=== PATIENT | male | born 1970 | race Caucasian/White ===

== ENCOUNTER 2022-11-13 17:37 | Inpatient (IN) | payer BC, OTHER ==
[2022-11-13 18:11] LABS: Absolute Lymphocytes (CBC) 1.8 K/uL (0.7-4.9); Hematocrit 40.2 % (39.6-49.0); MCV 82.9 fL (80-100); MPV 7.7 fL (7.6-11.3); RBC Red Blood Cell Count 4.85 M/uL (4.33-5.43)
[2022-11-13 18:24] LABS: Bilirubin Total 2.4 mg/dL (0.2-1.0); Potassium 4.2 mEq/L (3.5-5.1); Protein, Total 7.8 g/dL (6.4-8.2)
[2022-11-13 18:40] LABS: Specific Gravity 1.018 (1.005-1.030); Urine Bacteria None Seen /HPF (<20); Urine Bilirubin NEGATIVE (Negative); Urine Blood Negative (Negative); Urine Clarity Clear (Clear); Urine Color Yellow (Yellow); Urine Crystals Unidentified Few /HPF (None Seen); Urine Glucose NEGATIVE (Negative); Urine Mucus Slight /HPF (None Seen); Urine Protein TRACE (Negative); Urine RBC <5 /HPF (None Seen); Urine Urobilinogen Normal (Normal); Urine pH 5.5 (5.0-7.0)
--- NOTE | 2022-11-13 19:00 | RAD REPORT ---
EXAM DESCRIPTION: CT - Abdomen Pelvis W Contrast - 11/13/2022 6:39 pm CLINICAL HISTORY: Abdominal pain/lower abdominal pain COMPARISON: none. TECHNIQUE: Computed axial tomography of the abdomen pelvis was obtained. 100 cc Isovue-300 was admin istered intravenously. Oral contrast was not requested which limits evaluation of bowel and appendix All CT scans are performed using dose optimization technique as appropriate and may include automated exposure control or mA/KV adjustment according to patient size. FINDINGS: Mild fatty liver Spleen, pancreas, adrenal and kidneys appear unremarkable. Normal appendix. Diverticula stem from predominantly descending colon. 2.3 centimeter fluid collection lies posterior to a diverticulum. There is moderate stranding within the adjacent fat. No free air. This is compatib le with diverticulitis. The wall of the descending colon is thickened at this level Small left inguinal hernia contains fat Small umbilical hernia IMPRESSION: Moderate descending colon diverticulitis. A 2.3 centimeter fluid collection lies posterior to a descending colon diverticulum. There is no enha ncing rim to suggest an abscess. Of this could be monitored on subsequent examination.
--- NOTE | 2022-11-13 20:04 | RAD REPORT ---
EXAM DESCRIPTION: US - Abdomen Exam Limited - 11/13/2022 7:53 pm CLINICAL HISTORY: Abdominal pain. COMPARISON: None. FINDINGS: The gallbladder wall is not thickened. A gallstone is not seen. The biliary tree is normal caliber. IMPRESSION: Unremarkable gallbladder ultrasound.
[2022-11-13] MEDS ORDERED: NA CHLORIDE 0.9% 100 ML ONE (20:05)
[2022-11-13] MEDS ORDERED: PIPERACIL/TAZO 3.375 GM VIAL IV ONE (20:05)
--- NOTE | 2022-11-13 20:17 | EDPHYS ---
Physician Documentation [facility] Name: Huey Meyers Age: 52 yrs Sex: Male : 1970 Arrival Date: 11/13/2022 Time: 17:37 Bed 13 Private MD: ED Physician Roque Henderson HPI: 11/13 20:49 This 52 yrs old Male presents to ER via Ambulatory with complaints of Abdominal Pain. jmm 20:49 The patient presents with abdominal pain. Onset: The symptoms/episode began/occurred jm gradually, 1 week(s) ago. The symptoms do not radiate. Associated signs and symptoms: Pertinent positives: nausea. Is a 52-year-old male with history of hypertension and previous episodes of diverticulitis the presents emerged part with complaints of left lower abdominal pain beginning approximately a week ago. Patient began a course of antibiotics that he is unable to name 2 days ago. Patient states that symptoms have worsened today. Historical: - Allergies: 17:44 horse tetanus; ld1 - Immunization history:: Adult Immunizations up to date, Client reports receiving the 2nd dose of the Covid vaccine. - Social history:: Smoking status: Patient denies any tobacco usage or history of. Patient uses alcohol, occasionally. ROS: 20:49 Constitutional: Negative for fever, chills, and weight loss, Cardiovascular: Negative jm for chest pain, palpitations, and edema, Respiratory: Negative for shortness of breath, cough, wheezing, and pleuritic chest pain. 20:49 Abdomen/GI: Positive for abdominal pain. 20:49 All other systems are negative. Exam: 20:49 Constitutional: This is a well developed, well nourished patient who is awake, alert, jmm and in no acute distress. Head/Face: atraumatic. Eyes: EOMI, no conjunctival erythema appreciated ENT: Moist Mucus Membranes Neck: Trachea midline, Supple Chest/axilla: Normal chest wall appearance and motion. Cardiovascular: Regular rate and rhythm. No edema appreciated Respiratory: Normal respirations, no respiratory distress appreciated 20:49 Back: Normal ROM Skin: General appearance color normal MS/ Extremity: Moves all extremities, no obvious deformities appreciated, no edema noted to the lower extremities Neuro: Awake and alert Psych: Behavior is normal, Mood is normal, Patient is cooperative and pleasant 20:49 Abdomen/GI: Inspection: abdomen appears normal, Bowel sounds: normal, Palpation: soft, mild abdominal tenderness, in the left lower quadrant. Vital Signs: 17:45 BP 149 / 100; Pulse 104; Resp 18; Temp 99(O); Pulse Ox 98% on R/A; Weight 95.25 kg; ld1 Height 5 ft. 9 in. ; Pain 7/10; 18:15 BP 117 / 77; Pulse 96; Resp 18; Pulse Ox 94% on R/A; vc1 19:15 BP 128 / 78; Pulse 86; Resp 18; Pulse Ox 94% on R/A; vc1 20:15 BP 129 / 82; Pulse 93; Resp 18; Pulse Ox 94% on R/A; vc1 21:15 BP 133 / 87; Pulse 89; Resp 18; Pulse Ox 96% on R/A; vc1 17:45 Body Mass Index 31.01 (95.25 kg, 175.26 cm) ld1 17:45 Pain Scale: Adult ld1 MDM: 17:50 Patient medically screened. [facility] 20:18 ED course: Sepsis. A) Source of infection is diverticulitis B) elevated heart rate and [facility] elevated white blood cell count C) bilirubin is 2.4. This meets criteria for severe sepsis.. 20:51 Differential diagnosis: diverticulitis, Hepatitis, Peritonitis. Data reviewed: vital [facility] signs, nurses notes, lab test result(s), radiologic studies, CT scan. Consideration of Admission/Observation Patient was admitted/placed on observation. Management of patient was discussed with the following: Hospitalist: Ian Stevens. I considered the following discharge prescriptions or medication management in the emergency department Medications were administered in the Emergency Department. See MAR. Discussion of test interpretation with radiology: I had a discussion with radiology regarding a test interpretation. Diverticulitis findings discussed with radiology. Fluid collection is consistent with acute diverticulitis. Currently does not have concerns for an abscess. Counseling: I had a detailed discussion with the patient and/or guardian regarding: the historical points, exam findings, and any diagnostic results supporting the discharge/admit diagnosis, lab results, radiology results, the need for further work-up and treatment in the hospital. 11/13 17:44 Order name: CBC with Diff; Complete Time: 18:31 ld1 11/13 17:44 Order name: CMP; Complete Time: 18:25 ld1 11/13 17:44 Order name: Lipase; Complete Time: 18:25 [facility] 11/13 17:44 Order name: Urinalysis w/ reflexes; Complete Time: 18:57 [facility] 11/13 20:12 Order name: Blood Culture Adult (2) [facility] 11/13 20:12 Order name: Lactate w/ 2H reflex if indic. [facility] 11/13 20:17 Order name: PT-INR [facility] 11/13 17:51 Order name: CT Abd/Pelvis - IV Contrast Only; Complete Time: 19:02 [facility] 11/13 19:04 Order name: US Abdomen Limited; Complete Time: 20:11 [facility] 11/13 17:44 Order name: IV Saline Lock; Complete Time: 18:05 ld 11/13 17:44 Order name: Labs collected and sent; Complete Time: 18:05 ld1 Administered Medications: 19:20 Drug: Lactated Ringers Solution IV 1000 ml Route: IV; Rate: 1000 bolus; Site: right [facility] antecubital; 21:00 Follow up: IV Status: Completed infusion; IV Intake: 1000ml vc1 19:20 Drug: morphine IVP or IV 4 mg Route: IVP; Infused Over: 4 mins; Site: right antecubital;3 20:00 Follow up: Response: Pain is decreased vc1 19:20 Drug: Ondansetron IVP 4 mg Route: IVP; Site: right antecubital; 3 20:00 Follow up: Response: No adverse reaction vc1 21:00 Drug: Piperacillin-Tazobactam IVPB 3.375 grams Route: IVPB; Infused Over: 60 mins; vc1 Site: right antecubital; 22:09 Follow up: Response: No adverse reaction; IV Status: Infusion continued upon admission; [facility] IV Intake: 50ml Disposition: 11/14 13:24 Co-signature as Attending Physician, Roque ANDREW was immediately available on-site ms3 in the Emergency Department for consultation in the care of the patient. Disposition Summary: 11/13/22 20:16 Hospitalization Ordered Hospitalization Status: Inpatient Admission [facility] Provider: Jose M Giraldo [facility] Condition: Stable [facility] Problem: new jmm Symptoms: are unchanged [facility] Bed/Room Type: Standard [facility] Room Assignment: 415(11/13/22 20:44) Diagnosis - Acute Diverticulitis [facility] - Severe sepsis without septic shock [facility] Forms: - Medication Reconciliation Form [facility] - SBAR form [facility] Signatures: Dispatcher [employer] Nba Juarez PA PA jmm Garcia, Cindy, RN RN cg Roque Henderson, DO ms3 Alieen Henderson RN RN ld1 Liliana Quiros RN RN vc1 Birgit Coleman RN RN eh3 Corrections: (The following items were deleted from the chart) 11/13 20:44 20:16 [facility]
--- NOTE | 2022-11-13 20:17 | ER ---
Nurse's Notes [facility] Name: Huey Meyers Age: 52 yrs Sex: Male : 1970 Arrival Date: 11/13/2022 Time: 17:37 Bed 13 Private MD: Diagnosis: Acute Diverticulitis;Severe sepsis without septic shock Presentation: 11/13 17:45 Chief complaint: Patient states: I began having a diverticulitis flare up - I ld1 [facility] Symptoms have become worse. C/O abd pain, fever. Coronavirus screen: At this time, the client does not indicate any symptoms associated with coronavirus-19. Ebola Screen: No symptoms or risks identified at this time. Initial Sepsis Screen: Does the patient meet any 2 criteria? No. Patient's initial sepsis screen is negative. Does the patient have a suspected source of infection? No. Patient's initial sepsis screen is negative. Risk Assessment: Do you want to hurt yourself or someone else? Patient reports no desire to harm self or others. Onset of symptoms was November 13, 2022. 17:45 Method Of Arrival: Ambulatory ld1 17:45 Acuity: CAMILA 3 ld1 Triage Assessment: 17:45 General: Appears in no apparent distress. comfortable, Behavior is calm, cooperative, ld1 appropriate for age. Pain: Complains of pain in abdomen Pain does not radiate. Pain currently is 9 out of 10 on a pain scale. Quality of pain is described as throbbing, Pain began 1 day ago. EENT: No signs and/or symptoms were reported regarding the EENT system. Neuro: Level of Consciousness is awake, alert, obeys commands, Oriented to person, place, time, situation. Cardiovascular: Capillary refill < 3 seconds Patient's skin is warm and dry. Respiratory: Airway is patent Respiratory effort is even, unlabored. GI: Abdomen is round non-distended. GI: Reports lower abdominal pain, upper abdominal pain. : No signs and/or symptoms were reported regarding the genitourinary system. Derm: No signs and/or symptoms reported regarding the dermatologic system. Musculoskeletal: No signs and/or symptoms reported regarding the musculoskeletal system. Historical: - Allergies: 17:44 horse tetanus; ld1 - Immunization history:: Adult Immunizations up to date, Client reports receiving the 2nd dose of the Covid vaccine. - Social history:: Smoking status: Patient denies any tobacco usage or history of. Patient uses alcohol, occasionally. Screenin:15 [facility] ED Fall Risk Assessment (Adult) Score/Fall Risk Level 0 - 2 = Low Risk. Abuse vc1 screen: Denies threats or abuse. Denies injuries from another. Nutritional screening: No deficits noted. Tuberculosis screening: No symptoms or risk factors identified. Assessment: 18:15 General: Appears in no apparent distress. uncomfortable, Behavior is calm, cooperative, vc1 appropriate for age. Pain: Complains of pain in left lower quadrant. Neuro: Level of Consciousness is awake, alert, obeys commands, Oriented to person, place, time, situation. Cardiovascular: Capillary refill < 3 seconds Patient's skin is warm and dry. Respiratory: Airway is patent Respiratory effort is even, unlabored, Respiratory pattern is regular, symmetrical. GI: Abdomen is round non-distended, Bowel sounds present X 4 quads. Abd is soft X 4 quads Abdomen is tender to palpation in left lower quadrant. : No signs and/or symptoms were reported regarding the genitourinary system. EENT: No signs and/or symptoms were reported regarding the EENT system. Derm: Skin is intact, is healthy with good turgor, Skin is pink, warm \T\ dry. Musculoskeletal: Circulation, motion, and sensation intact. 19:15 Reassessment: Patient appears in no apparent distress at this time. Patient and/or vc1 family updated on plan of care and expected duration. Pain level reassessed. Patient is alert, oriented x 3, equal unlabored respirations, skin warm/dry/pink. 20:15 Reassessment: Patient appears in no apparent distress at this time. Patient and/or vc1 family updated on plan of care and expected duration. Pain level reassessed. Patient is alert, oriented x 3, equal unlabored respirations, skin warm/dry/pink. 21:15 Reassessment: Patient appears in no apparent distress at this time. Patient and/or vc1 family updated on plan of care and expected duration. Pain level reassessed. Patient is alert, oriented x 3, equal unlabored respirations, skin warm/dry/pink. Vital Signs: 17:45 BP 149 / 100; Pulse 104; Resp 18; Temp 99(O); Pulse Ox 98% on R/A; Weight 95.25 kg; ld1 Height 5 ft. 9 in. ; Pain 7/10; 18:15 BP 117 / 77; Pulse 96; Resp 18; Pulse Ox 94% on R/A; vc1 19:15 BP 128 / 78; Pulse 86; Resp 18; Pulse Ox 94% on R/A; vc1 20:15 BP 129 / 82; Pulse 93; Resp 18; Pulse Ox 94% on R/A; vc1 21:15 BP 133 / 87; Pulse 89; Resp 18; Pulse Ox 96% on R/A; vc1 17:45 Body Mass Index 31.01 (95.25 kg, 175.26 cm) ld1 17:45 Pain Scale: Adult ld1 ED Course: 17:39 Patient arrived in ED. ts1 17:44 Nba Falcon PA is PHCP. jmm 17:44 Roque Henderson DO is Attending Physician. jmm 17:45 Arm band placed on right wrist. ld1 17:47 Triage completed. ld1 18:06 Inserted saline lock: 20 gauge in right antecubital area, using aseptic technique. ld1 Blood collected. 18:11 Radiology exam delayed due to lab results not completed at this time. (BUN/Creatinine) jg10 IV insertion attempt and/or patient not having appropriate IV at this time. 18:12 Urinalysis w/ reflexes Sent. ld1 18:12 Lipase Sent. ld1 18:12 CMP Sent. ld1 18:12 CBC with Diff Sent. ld1 18:15 Patient has correct armband on for positive identification. Bed in low position. Call vc1 light in reach. Side rails up X2. Adult w/ patient. Pulse ox on. NIBP on. Door closed. Visitors limited. Lights dimmed. Warm blanket given. 18:16 Birgit Coleman, RN is Primary Nurse. eh3 18:41 CT Abd/Pelvis - IV Contrast Only In Process Unspecified. EDMS 19:55 US Abdomen Limited In Process Unspecified. EDMS 20:16 Jose M Giraldo MD is Hospitalizing Provider. jmm 21:20 First set of blood cultures drawn by mo. vc1 21:48 No provider procedures requiring assistance completed. Patient admitted, IV remains in vc1 place. Administered Medications: 19:20 Drug: Lactated Ringers Solution IV 1000 ml Route: IV; Rate: 1000 bolus; Site: right 3 antecubital; 21:00 Follow up: IV Status: Completed infusion; IV Intake: 1000ml [facility] 19:20 Drug: morphine IVP or IV 4 mg Route: IVP; Infused Over: 4 mins; Site: right antecubital;[facility] 20:00 Follow up: Response: Pain is decreased vc1 19:20 Drug: Ondansetron IVP 4 mg Route: IVP; Site: right antecubital; [facility] 20:00 Follow up: Response: No adverse reaction 1 21:00 Drug: Piperacillin-Tazobactam IVPB 3.375 grams Route: IVPB; Infused Over: 60 mins; 1 Site: right antecubital; 22:09 Follow up: Response: No adverse reaction; IV Status: Infusion continued upon admission; [facility] IV Intake: 50ml Medication: 21:48 VIS not applicable for this client. vc1 Intake: 21:00 IV: 1000ml; Total: 1000ml. [facility] 22:09 IV: 50ml; Total: 1050ml. [facility] Outcome: 20:16 Decision to Hospitalize by Provider. m 21:48 Admitted to Tele accompanied by tech, via wheelchair, room 415, Report called to Lan [facility] 21:48 Condition: stable 21:48 Instructed on the need for admit. 21:48 Patient left the ED. [facility] Signatures: Dispatcher [employer] EDMS Nba Falcon PA PA jmm Sims, Lauren, RN RN ld1 Liliana Quiros RN RN vc1 Birgit Coleman RN RN [facility] Maura TalaveraDyan Christian PAS PAS [facility]
--- NOTE | 2022-11-13 20:53 | P.HP ---
Certification for Inpatient Patient admitted to: Inpatient With expected LOS: >2 Midnights Patient will require the following post-hospital care: None Practitioner: I am a practitioner with admitting privileges, knowledge of patient current condition, hospital course, and medical plan of care. Services: Services provided to patient in accordance with Admission requirements found in Title 42 Section 412.3 of the Code of Federal Regulations Patient History Date of Service: 11/13/22 Reason for admission: Acute diverticulitis History of Present Illness: 52-year-old male with history of hypertension, diverticulosis presents to the emergency department with chief complaint of fever, left lower quadrant abdominal pain. He reports that his pain began on 11/11/2022, worsening pain and fevers on 11/12/2022. He has been on Augmentin since then. Pain and fevers persisted for this reason he presented to the emergency department today. His labs were significant for leukocytosis white blood cell count 13.1 T. bili 2.4 sodium 133 lactic acid, blood cultures pending CT abdomen pelvis with IV contrast showed moderate descending colon diverticulitis. A 2.3 cm fluid collection lies posterior to the descending colon diverticulum. There is no enhancing rim to suggest an abscess. This could be monitored on subsequent examination. Ultrasound of the gallbladder was also performed which was negative for any acute findings. Discussed case with general surgery given fluid collection, will admit n.p.o. on IV antibiotics. Allergies Tetanus Vaccines and Toxoid Allergy (Intermediate, Verified 10/03/17 14:34) Itching/Hives/Rash horse tetan Allergy (Severe, Uncoded 10/03/17 21:14) Anaphylaxis Home Medications: Aspirin [Aspirin EC 81 MG] 81 mg PO DAILY #90 tablet. 10/04/17 lisinopriL [Prinivil*] 10 mg PO DAILY #30 tab 10/04/17 - Past Medical/Surgical History Diabetic: No -: bible cyst -: Diverticulitis -: Cyst removed from wrist -: Tendons surgery to the foot Psychosocial/ Personal History: The patient is . He does work. He has 3 children. - Family History Father -: Stroke Mother -: Hypertension - Social History Smoking Status: Never smoker Alcohol use: No CD- Drugs: No Caffeine use: Yes Place of Residence: Home Review of Systems 10-point ROS is otherwise unremarkable Gastrointestinal: Abdominal Pain Physical Examination - Physical Exam General: Alert, In no apparent distress, Oriented x3 HEENT: Atraumatic, PERRLA, Mucous membr. moist/pink, EOMI, Sclerae nonicteric Neck: Supple, 2+ carotid pulse no bruit, No LAD, Without JVD or thyroid abnormality Respiratory: Clear to auscultation bilaterally, Normal air movement Cardiovascular: Regular rate/rhythm, Normal S1 S2 Capillary refill: <2 Seconds Gastrointestinal: No tenderness, Tenderness (Moderate left lower quadrant tenderness) Musculoskeletal: No tenderness Integumentary: No rashes Neurological: Normal speech, Normal strength at 5/5 x4 extr, Normal tone, Normal affect - Studies Laboratory Data (last 24 hrs) 11/13/22 17:58: Sodium 133 L, Potassium 4.2, BUN 16, Creatinine 1.12, Glucose 94, Total Bilirubin 2.4 H, AST 19, ALT 39, Alkaline Phosphatase 105, Lipase 19 11/13/22 17:58: WBC 13.10 H, Hgb 13.4 L, Hct 40.2, Plt Count 194 Assessment and Plan - Plan Assessment: Severe sepsis secondary to acute diverticulitis Elevated T. bili HTN Plan: Severe sepsis secondary to acute diverticulitis SIRS criteria present including leukocytosis, tachycardia, source of infection with acute diverticulitis. T. bili greater than 2 meets criteria for severe sepsis. Lactate pending, blood cultures were obtained. Continue antibioticsZosyn. N.p.o., surgical consult in place. Recommend outpatient colonoscopy for 6 weeks after treatment complete. Serial abdominal exams. Currently with moderate left lower quadrant tenderness. Elevated T. bili Possibly secondary to sepsis vs Gilbert's syndrome among other considerations. Ultrasound of the gallbladder negative for gallbladder or biliary pathology. Patient has had 1 previous elevated T. bili at 1.5 and number of years ago. He denies chronic alcohol abuse, LFTs normal. HTN Hold oral antihypertensives in the setting of sepsis, continue when appropriate. DVT PPX:Lovenox Code status:Full Discharge Plan: Home Plan to discharge in: 72 Hours - Advance Directives Does patient have a Living Will: No Does patient have a Durable POA for Healthcare: No - Code Status/Comfort Care Code Status Assessed: Yes (Full code) Critical Care: No Time Spent Managing Pts Care (In Minutes): 55
[2022-11-13] MEDS ORDERED: ACETAMINOPHEN 500 MG TAB PO PRN (21:51)
[2022-11-13] MEDS ORDERED: ONDANSETRON 4 MG/2 ML VIAL IV PRN (21:51)
[2022-11-13 21:58] LABS: Protime INR 1.24
[2022-11-13 22:06] VITALS: O2SAT 96
[2022-11-13] MEDS: Ringers Lactate 1,000 ML IV SCH (22:16)
[2022-11-13 23:30] VITALS: BMI 30.3
[2022-11-14] MEDS: PIPER TAZO 3.375 GM in NA CHLORIDE 0.9% 100 ML IV SCH ×3 (00:33→16:34)
[2022-11-14] MEDS: MORPHINE 4 MG/ML SYR IV PRN ×2 (03:19→07:05)
[2022-11-14 04:59] LABS: Absolute Lymphocytes (CBC) 1.2 K/uL (0.7-4.9); Hematocrit 36.2 % (39.6-49.0); Lymphocytes % 12.9 % (15.3-44.8); RBC Red Blood Cell Count 4.37 M/uL (4.33-5.43)
[2022-11-14 05:13] LABS: Albumin 3.2 g/dL (3.4-5.0); Magnesium 2.2 mg/dL (1.6-2.4); Protein, Total 6.5 g/dL (6.4-8.2)
[2022-11-14] MEDS: Ringers Lactate 1,000 ML IV SCH ×3 (05:48→20:35)
[2022-11-14] MEDS: ENOXAPARIN 40 MG/0.4 ML SQ SCH (08:56)
--- NOTE | 2022-11-14 13:52 | CON ---
Date of Consultation: 11/13/2022 Reason For Consultation: Abdominal pain. History Of Present Illness: Patient is a 52-year-old gentleman, who has had previous episodes of mil d flare-ups with pain in the left lower quadrant which he attributed to diverticulitis; however, he h as never had a colonoscopy before. This episode, however, started 3 days ago kind of left lateral ab dominal pain which localized to the left lower quadrant and left middle quadrant. Patient had fevers associated with this today. Patient was started on Augmentin and he continued to have increasing pa in. He previously came to the ER and had a CAT scan done. The CAT scan shows moderate descending co rosendo diverticulitis with a 2.3 cm fluid collection posterior to the descending colon diverticulum. Th ere is no indication that it is an abscess, however. The patient denies any family history of colore ctal carcinoma. No sore throat, runny nose, cough, headaches, or dizziness, and no chest pain. Review of Systems: Otherwise, unremarkable. Past Medical History: History of diverticulitis. Past Surgical History: Ganglion cyst excision from the wrist and left foot surgery for tendon repair . Allergies: INCLUDE TETANUS. Social History: Patient does not smoke. Drinks occasionally. Family History: Noncontributory with the father having a stroke and mother having hypertension. Physical Examination: Vital Signs: Currently, stable. He is afebrile. General: He is awake, alert, and oriented x3. Head and Neck: Cranial nerves 2 through 12 are grossly within normal limits. No neck masses. No JV D. Throat clear. Neck is supple. Chest: Clear. Heart: S1, S2. Abdomen: Soft, nondistended. Positive bowel sounds. Positive left lower quadrant tenderness with m inimal rebound. No rigidity or guarding. Extremity: Adequately perfused. Nontender. Neuro: Nonfocal. Laboratory Data: White count on admission was 13.1 with a left shift, this morning, it is 9.6, with a slight left shift and patient's lactic acid 0.8. Laboratory Data: CT of the abdomen and pelvis reviewed as well as the abdominal ultrasound, [facility] patient had descending colon acute diverticulitis with a small fluid collection posterior to the colon. Ultrasound of the abdomen is negative. Assessment: Acute descending colon diverticulitis. Recommendations: Begin with sips of clear liquids today as patient is feeling better and advance to a low-fiber diet as tolerated. Once patient's pain is improved and white count remains normalized, garcia borrego patient can be discharged home on oral antibiotics and follow up with me in a couple of weeks, chapincito zee which I can make a referral to other GI specialists or a colorectal surgeon based on what I t hink the patient needs a surgical resection or not based on his response to the antibiotics. Plan of care discussed in detail with the patient and the patient also will get a dietary consultation for a diet modification. /CEASARL Voice ID: [id number] Report ID: [id number]
--- NOTE | 2022-11-14 18:46 | P.PN ---
Subjective Date of Service: 11/14/22 Chief Complaint: Acute diverticulitis No acute events since admission. He reports that his abdominal pain has improved significantly. He reports minimal nausea and no vomiting. He reports no bowel movement since admission. Review of Systems 10-point ROS is otherwise unremarkable Gastrointestinal: Abdominal Pain Physical Examination - Vital Signs Temperature: 99.2 F Blood Pressure: 105/59 Pulse: 87 Respirations: 16 Pulse Ox (%): 91 - Physical Exam General: Alert, In no apparent distress, Oriented x3 HEENT: Atraumatic, Mucous membr. moist/pink, Sclerae nonicteric Neck: JVD not distended Respiratory: Clear to auscultation bilaterally, Normal air movement Cardiovascular: No edema, Regular rate/rhythm, Normal S1 S2, No gallops, No rubs, No murmurs Gastrointestinal: Normal bowel sounds, Soft and benign, Non-distended, No rebound, No guarding, Tenderness (left-sided, mild-moderate) Musculoskeletal: No clubbing Integumentary: No rashes Neurological: Normal speech, Normal affect Assessment And Plan - Plan # Severe Sepsis likely secondary to Acute Descending Colon Diverticulitis # Indirect Hyperbilirubinemia - due to Sepsis vs Gilbert's Syndrome He met SIRS criteria based on HR > 90 bpm and WBC > 12,000, and the suspected source is diverticullitis. Severe sepsis is suspected due to concern for tissue hypoperfusion/organ dysfunction based on bilirubin >2 mg/dL. - Radiology: - CT abdomen/pelvis = "moderate descending colon diverticulitis. A 2.3 centimeter fluid collection lies posterior to a descending colon diverticulum. There is no enhancing rim to suggest an abscess. Of this could be monitored on subsequent examination." - RUQ ultrasound = "unremarkable gallbladder ultrasound." - General Surgery consulted and spoke with Dr. Cortés - recommendations appreciated - He believes fluid collection to be inflammatory response rather than an abscess - will continue to monitor - Sepsis order set was initiated - Initial Lactate was 0.8 - Blood cultures drawn before antibiotics were given - Broad spectrum antibiotics started: Piperacillin-Tazobactam - In regards to fluids: - 30 mL/kg of IV Lactated Ringers was given based on patient's actual body weight - PRN pain control - NPO - advance diet per Surgery recs - Counseled on the possibility of diverticulitis being an early sign of colon cancer. He was counseled to have a colonoscopy in 4-6 weeks to evaluate for colon cancer. He verbalized understanding and agreed to make this appointment. # Hypertension - Hold home anti-hypertensives due to concern for sepsis Jose M Giraldo M.D.
[2022-11-15] MEDS: PIPER TAZO 3.375 GM in NA CHLORIDE 0.9% 100 ML IV SCH ×3 (00:03→17:20)
[2022-11-15 04:27] LABS: Absolute Lymphocytes (CBC) 1.3 K/uL (0.7-4.9); Hematocrit 34.8 % (39.6-49.0); Lymphocytes % 18.4 % (15.3-44.8); MCV 82.1 fL (80-100); MPV 7.5 fL (7.6-11.3); RBC Red Blood Cell Count 4.24 M/uL (4.33-5.43)
[2022-11-15 04:43] LABS: Albumin 2.9 g/dL (3.4-5.0); Bilirubin Total 1.2 mg/dL (0.2-1.0); Magnesium 2.1 mg/dL (1.6-2.4); Potassium 4.1 mEq/L (3.5-5.1); Protein, Total 6.2 g/dL (6.4-8.2)
[2022-11-15] MEDS: Ringers Lactate 1,000 ML IV SCH ×3 (05:13→17:20)
[2022-11-15] MEDS: MORPHINE 4 MG/ML SYR IV PRN ×2 (05:18→20:23)
[2022-11-15] MEDS ORDERED: TRAMADOL HCL 50 MG TAB PO PRN (08:11)
[2022-11-15] MEDS: ENOXAPARIN 40 MG/0.4 ML SQ SCH (08:16)
--- NOTE | 2022-11-15 11:10 | PN ---
Date of Progress Note: 11/15/2022 Subjective: The patient is awake, alert. No complaints. The patient's pain is better. Objective: Vital Signs: Stable, afebrile. Abdomen: Less tender. No rebound, rigidity, or guarding. Laboratory Data: Reviewed. White count is normal. Assessment: Acute descending colon diverticulitis. Recommendations: We will start clear liquids this morning, slowly advance to full liquid and low-fib er diet as tolerated. Hopefully, the patient will be discharged within the next 24-48 hours. Plan o f care discussed in detail with the patient. /MODL Voice ID: [id number] Report ID: [id number]
--- NOTE | 2022-11-15 16:25 | P.PN ---
Subjective Date of Service: 11/15/22 Chief Complaint: Acute diverticulitis No acute events overnight. He reports that his abdominal pain has improved significantly. He denies any nausea/vomiting. He has been passing gas. Plan to trial clear liquid diet this morning. Review of Systems 10-point ROS is otherwise unremarkable Gastrointestinal: Abdominal Pain (improved) Physical Examination - Vital Signs Temperature: 98.1 F Blood Pressure: 109/62 Pulse: 82 Respirations: 16 Pulse Ox (%): 94 Assessment And Plan - Plan - Physical Exam General: Alert, In no apparent distress, Oriented x3 HEENT: Atraumatic, Mucous membr. moist/pink, Sclerae nonicteric Neck: JVD not distended Respiratory: Clear to auscultation bilaterally, Normal air movement Cardiovascular: No edema, Regular rate/rhythm, No murmurs Gastrointestinal: Normal bowel sounds, Soft, Non-distended, No rebound, No guarding, Tenderness (left-sided, mild) Musculoskeletal: No clubbing Integumentary: No rashes Neurological: Normal speech, Normal affect # Severe Sepsis likely secondary to Acute Descending Colon Diverticulitis # Indirect Hyperbilirubinemia - due to Sepsis vs Gilbert's Syndrome He met SIRS criteria based on HR > 90 bpm and WBC > 12,000, and the suspected source is diverticullitis. Severe sepsis is suspected due to concern for tissue hypoperfusion/organ dysfunction based on bilirubin >2 mg/dL. - Radiology: - CT abdomen/pelvis = "moderate descending colon diverticulitis. A 2.3 centimeter fluid collection lies posterior to a descending colon diverticulum. There is no enhancing rim to suggest an abscess. Of this could be monitored on subsequent examination." - RUQ ultrasound = "unremarkable gallbladder ultrasound." - General Surgery consulted and spoke with Dr. Cortés - recommendations appreciated - He believes fluid collection to be inflammatory response rather than an abscess - will continue to monitor - Sepsis order set was initiated - Initial Lactate was 0.8 - Blood cultures drawn before antibiotics were given - Broad spectrum antibiotics started: Piperacillin-Tazobactam - In regards to fluids: - 30 mL/kg of IV Lactated Ringers was given based on patient's actual body weight - PRN pain control - Start clear liquid diet - advance diet per Surgery recs - Counseled on the possibility of diverticulitis being an early sign of colon cancer. He was counseled to have a colonoscopy in 4-6 weeks to evaluate for colon cancer. He verbalized understanding and agreed to make this appointment. # Hypertension - Hold home anti-hypertensives due to concern for sepsis Jose M Giraldo M.D.
[2022-11-16] MEDS: PIPER TAZO 3.375 GM in NA CHLORIDE 0.9% 100 ML IV SCH ×2 (00:59→08:18)
[2022-11-16] MEDS: Ringers Lactate 1,000 ML IV SCH (03:53)
[2022-11-16 08:09] VITALS: BP 129/75; TEMP 97.6
[2022-11-16] MEDS: ENOXAPARIN 40 MG/0.4 ML SQ SCH (08:18)
--- NOTE | 2022-11-16 14:52 | PN ---
Date of Progress Note: 11/16/2022 Subjective: The patient is awake, alert. Feels better. Tolerating full liquids. Objective: Vital Signs: Stable, afebrile. Abdomen: Benign. Laboratory Data: Reviewed from yesterday. Assessment: Left descending colon diverticulitis. Recommendations: The patient tolerates a low-fiber diet, can be discharged home on antibiotics. Fol low up with me in 2 weeks. The patient will need a colonoscopy in 4-6 weeks by a colorectal surgeon in [place]. Plan of care discussed in detail with the patient. /MODL Voice ID: [id number] Report ID: [id number]
== END 2022-11-16 10:49 | disposition home or self-care (01) | DRG 872 ==
LOC: ER 17:37 → 4TH 20:43 → 2ND 11-15 11:14
PROVIDERS: ADMIT Internal Medicine; ATTEND Hospitalist
DX: A41.9 Sepsis, unspecified organism (principal); K57.32 Diverticulitis of large intestine without perforation or abscess without bleeding; R65.20 Severe sepsis without septic shock; I10 Essential (primary) hypertension; E80.6 Other disorders of bilirubin metabolism; Z88.7 Allergy status to serum and vaccine; Z79.82 Long term (current) use of aspirin; Z79.899 Other long term (current) drug therapy
CPT/HCPCS: 36415; 74177; 76705; 80053; 81001; 82248; 83605; 83690; 83735; 85025; 85610; 87040; 96361; 96365; 96375; 99285; J1650; J2405; J2543; J7120; Q9967